=== PATIENT | male | born 1970 | race Caucasian/White ===

== ENCOUNTER → 2018-09-08 | Emergency (ER) | payer SELFPAY ==
[~2018-09-08] VITALS: Ht 182.9 cm; Wt 72.6 kg
[~2018-09-08] MED LIST: FLUORESCEIN (FLUOR-I-STRIPS) 1 MG STRP ONE; FLUORESCEIN (FLUOR-I-STRIPS) 1 MG STRP OU ONE; RX-GENTAMICIN 0.3% OP OINT 3.5 GM TUBE OP STA; RX-HYDROCODONE/APAP 5/325 MG #4 TAB PK PO PRN; TETRACAINE 0.5% OPHTH SOLN 4 ML BTL (SINGLE DOSE ONLY) ONE; TETRACAINE 0.5% OPHTH SOLN 4 ML BTL (SINGLE DOSE ONLY) OU ONE
--- NOTE | 2018-09-08 20:52 | ED EENT ---
History of Present Illness General Chief Complaint: Eye Problems Stated Complaint: R EYE INJ Nursing Triage Note: PT PRESENTS TO ER WITH COMPLAINT OF RIGHT EYE PAIN. STATES HE FEELS HE HAD SOMETHING HIT HIS EYE. Source: patient Exam Limitations: no limitations History of Present Illness Date Seen by Provider: Sep 08, 2018 Time Seen by Provider: 20:49 Initial Comments ER with sensation of foreign body in the right eye. This began earlier this evening when he was putting up siding. He is not know what could be in his eye. Timing/Duration: this evening Severity: moderate Location: eye (R) Allergies and Home Medications Allergies Coded Allergies: Penicillins (Verified Allergy, Unknown, 09/08/18) Patient Home Medication List Home Medication List Reviewed: Yes Review of Systems Review of Systems Constitutional: see HPI Eyes: See HPI, Foreign Body Sensation, Pain Ears: No Symptoms Reported Nose: no symptoms reported Mouth: no symptoms reported Throat: no symptoms reported Respiratory: no symptoms reported Cardiovascular: no symptoms reported Past Zeywhaf-[id number]-[id number] Hx Patient Social History Alcohol Use: Denies Use Recreational Drug Use: No Smoking Status: Current Everyday Smoker Type Used: Cigarettes Recent Foreign Travel: No Contact w/Someone Who Travel: No Recent Infectious Disease Expo: No Recent Hopitalizations: No Immunizations Up To Date Tetanus Booster (TDap): Unknown PED Vaccines UTD: Yes Seasonal Allergies Seasonal Allergies: No Past Medical History Surgeries: No Respiratory: No Cardiac: No Neurological: No Genitourinary: No Gastrointestinal: No Musculoskeletal: No Endocrine: Yes Hyperthyroidism HEENT: No Cancer: No Psychosocial: No Integumentary: No Blood Disorders: No Physical Exam Vital Signs Vital Signs - First Documented 09/08/18 20:39 Temp 98.0 Pulse 80 Resp 20 B/P (MAP) 140/95 (110) Pulse Ox 99 O2 Delivery Room Air Height, Weight, BMI Height: 6'0" Weight: 160lbs. oz. [id number]; BMI Method:Stated General Appearance: WD/WN, no apparent distress Eyes: right eye other (upon fluorescein staining there is about a 2 mm area of dye uptake at the 1:00 position at the limbus. No hyphema.); bilateral eye PERRL , bilateral eye EOMI Ears: bilateral ear auricle normal, bilateral ear canal normal, bilateral ear TM normal Neck: non-tender, full range of motion Respiratory: no respiratory distress, no accessory muscle use Neurologic/Psychiatric: alert, normal mood/affect, oriented x 3 Skin: normal color, warm/dry Instillation of topical tetracaine resulted in significant improvement in pain. Progress/Results/Core Measures Results/Orders My Orders Orders - ABIODUN WEISS APRN Tetracaine 0.5% Ophth Miesha Sdv (Tetracai (09/08/18 21:00) Fluorescein Strips ([id number]) (09/08/18 21:00) Rx-Hydrocodone/Apap 5-325 Mg (Rx-Vicodin (09/08/18 21:00) Rx-Gentamicin Ophth Oint (Rx-Gentamicin (09/08/18 20:47) Medications Given in ED Current Medications Medications Dose Ordered Sig/Tory Route Start Time Stop Time Status Last Admin Dose Admin Fluorescein Sodium 1 mg STK-MED ONCE .ROUTE 09/08/18 20:39 09/08/18 20:40 DC 09/08/18 20:45 1 MG Tetracaine HCl 4 ml STK-MED ONCE .ROUTE 09/08/18 20:39 09/08/18 20:40 DC 09/08/18 20:45 4 ML Vital Signs/I&O 09/08/18 20:39 Temp 98.0 Pulse 80 Resp 20 B/P (MAP) 140/95 (110) Pulse Ox 99 O2 Delivery Room Air Blood Pressure Mean: 110 Departure Impression Primary Impression: Corneal abrasion Disposition: 01 HOME, SELF-CARE Condition: Stable Departure-Patient Inst. Decision time for Depature: 20:51 Referrals: SKINNY VÁSQUEZ OD NO,LOCAL PHYSICIAN (PCP) Primary Care Physician Patient Instructions: Corneal Abrasion (DC) Add. Discharge Instructions: 1. Call Dr. Valdes on Tuesday to make an appointment to be seen for follow-up. Return to the emergency room over the weekend in the meantime for any intolerable pain. Apply the antibiotic ointment inside the lower eyelid 3 times a day. Pain medication as directed. All discharge instructions reviewed with patient and/or family. Voiced understanding. ABIODUN WEISS APRN Sep 08, 2018 20:52
[2018-09-08 21:05] VITALS: BP 140/95
== END | disposition home or self-care (01) ==
LOC: EDUNIT# 20:29 → ER 20:30
DX: S05.00XA Injury of conjunctiva and corneal abrasion without foreign body, unspecified eye, initial encounter (principal); E05.90 Thyrotoxicosis, unspecified without thyrotoxic crisis or storm; F17.210 Nicotine dependence, cigarettes, uncomplicated; Z88.0 Allergy status to penicillin
CPT/HCPCS: 99283